=== PATIENT | female | born 1950 | race Caucasian/White ===

== ENCOUNTER 2016-08-15 05:16 | Inpatient (IN) | payer BC ==
[2016-08-13 13:32] LABS: HIV 1&2 ANTIBODY SCREEN Nonreactive (Nonreactive); HIV-1 p24 ANTIGEN Nonreactive (Nonreactive)
[~2016-08-15] VITALS: Ht 165.1 cm; Wt 146.7 kg
[~2016-08-15 05:16] MED LIST: ATEN50TA41 PO; CA C1TAB60 PO; CHOL400D3 PO; CITA40TA12 PO; IRON PO; MULT-516 PO; UBID200C8 PO
[2016-08-15] MEDS ORDERED: LACTATED RINGERS 1,000 ML IV SCH (05:42)
[2016-08-15 05:43] VITALS: BP 129/84
[2016-08-15] MEDS ORDERED: LIDOCAINE 1%, 2ML SQ PRN (06:00)
[2016-08-15] MEDS ORDERED: ACET-1600 PO (06:04)
[2016-08-15] MEDS ORDERED: GABA600T2 PO (06:04)
[2016-08-15] MEDS ORDERED: KETOROLAC 60 MG/2 ML ONE (06:12)
[2016-08-15] MEDS ORDERED: EPINEPHRINE 1 MG/ML, 1ML ONE (06:12)
[2016-08-15] MEDS ORDERED: ROPIvacaine/PF 0.2%, 20 ML ONE (06:12)
[2016-08-15] MEDS ORDERED: TRANEXAMIC ACID 100 MG/ML, 10ML ONE (06:13)
[2016-08-15] MEDS ORDERED: MIDAZOLAM 1 MG/ML, 2ML ONE (06:35)
[2016-08-15] MEDS ORDERED: FENTANYL PF 100 MCG/2ML ONE ×2 (06:36→09:08)
[2016-08-15] MEDS ORDERED: ROPIvacaine/PF 0.5%, 30 ML ONE (06:41)
[2016-08-15] MEDS ORDERED: ONDANSETRON 2MG/ML, 2ML ONE ×2 (07:12→09:03)
[2016-08-15] MEDS ORDERED: CEFAZOLIN 1,000 MG ONE (07:12)
[2016-08-15] MEDS ORDERED: DEXAMETHASONE 4 MG/ML, 5ML ONE (07:12)
[2016-08-15] MEDS ORDERED: PROPOFOL 10 MG/ML, 50ML ONE (07:12)
[2016-08-15] MEDS ORDERED: hydrALAzine 20 MG/ML, 1ML ONE ×2 (07:12→07:47)
[2016-08-15] MEDS ORDERED: GLYCOPYRROLATE 0.2MG/1ML ONE (07:12)
[2016-08-15] MEDS ORDERED: LABETALOL 5MG/ML, 20ML IV PRN (08:30)
[2016-08-15] MEDS ORDERED: HYDROmorphone 1 MG/ML, 1ML IV PRN (08:30)
[2016-08-15] MEDS ORDERED: ONDANSETRON 2MG/ML, 2ML IVPush PRN (08:30)
[2016-08-15] MEDS ORDERED: hydrALAzine 20 MG/ML, 1ML IV PRN (08:30)
[2016-08-15] MEDS ORDERED: OXYcodone 5 MG/5 ML ORAL.SOL UDC PO PRN (08:30)
[2016-08-15] MEDS ORDERED: DIPHENHYDRAMINE 50 MG CAPSULE PO PRN (09:00)
[2016-08-15] MEDS: DOCUSATE 100 MG CAPSULE PO SCH ×2 (09:00→21:37)
[2016-08-15] MEDS ORDERED: ALUMINUM/MAG/SIMETHICONE 30 ML UDC PO PRN (09:00)
[2016-08-15] MEDS ORDERED: MAGNESIUM HYDROXIDE 8%, 30ML UDC PO PRN (09:00)
[2016-08-15] MEDS ORDERED: ONDANSETRON 4 MG TABLET PO PRN (09:00)
[2016-08-15] MEDS ORDERED: SENNA/DOCUSATE TABLET PO PRN (09:00)
[2016-08-15] MEDS ORDERED: HYDROcodone/APAP 5/325 TABLET PO PRN (09:00)
[2016-08-15] MEDS ORDERED: ONDANSETRON 2MG/ML, 2ML IV PRN (09:00)
[2016-08-15] MEDS ORDERED: BISACODYL 10 MG SUPP PR PRN (09:00)
[2016-08-15] MEDS: FENTANYL PF 100 MCG/2ML IV PRN ×2 (09:10→09:40)
[2016-08-15 10:40] VITALS: BP 134/80
[2016-08-15] MEDS: D5%-0.45NACL+KCL 20MEQ 1,000 ML IV SCH ×2 (11:44→21:36)
[2016-08-15 14:12] VITALS: BP 120/78
[2016-08-15] MEDS: CEFAZOLIN PMX 2GM/50ML 50 ML IVPB SCH ×2 (14:51→23:34)
[2016-08-15] MEDS: ASPIRIN 81 MG TABLET EC PO SCH (17:14)
[2016-08-15 20:03] VITALS: BP 106/69
[2016-08-15] MEDS ORDERED: ATENOLOL 50 MG TABLET PO SCH (21:00)
[2016-08-15 23:49] VITALS: BP 102/62
[2016-08-16 03:11] VITALS: BP 97/53
[2016-08-16] MEDS: D5%-0.45NACL+KCL 20MEQ 1,000 ML IV SCH (03:30)
[2016-08-16] MEDS: ASPIRIN 81 MG TABLET EC PO SCH (05:57)
[2016-08-16 06:30] VITALS: BP 123/72
[2016-08-16] MEDS ORDERED: CITALOPRAM 20 MG TABLET PO SCH (09:00)
[2016-08-16] MEDS ORDERED: KETOROLAC 30 MG/1 ML IV SCH (09:00)
[2016-08-16] MEDS: DOCUSATE 100 MG CAPSULE PO SCH (09:19)
[2016-08-16] MEDS ORDERED: TRAM50TA2 PO (11:00)
[2016-08-16] MEDS ORDERED: ASPI81TA50 PO (11:01)
[2016-09-06] MEDS ORDERED: OMEP20TA62 PO (11:13)
== END 2016-08-16 11:20 | disposition home or self-care (01) | DRG 470 ==
LOC: ORIP 05:16 → 4NOR 10:42 → DCLOUNGE 08-16 11:00
PROVIDERS: ADMIT Orthopaedic Surgery Adult Reconstructive Orthopaedic Surgery; ATTEND Orthopaedic Surgery Adult Reconstructive Orthopaedic Surgery
PROC: 3E0T3CZ (ICD-10-PCS; 2016-08-15)
PROC: 0SRC0J9 Replacement of Right Knee Joint with Synthetic Substitute, Cemented, Open Approach (ICD-10-PCS; principal; 2016-08-15 07:00)
DX: M17.0 Bilateral primary osteoarthritis of knee (principal); Z68.43 Body mass index [BMI] 50.0-59.9, adult; G47.33 Obstructive sleep apnea (adult) (pediatric); E66.01 Morbid (severe) obesity due to excess calories; I48.91 Unspecified atrial fibrillation; I10 Essential (primary) hypertension; Z88.1 Allergy status to other antibiotic agents; Z88.0 Allergy status to penicillin; Z88.2 Allergy status to sulfonamides; Z88.8 Allergy status to other drugs, medicaments and biological substances; Z88.4 Allergy status to anesthetic agent; Z79.899 Other long term (current) drug therapy; Z72.89 Other problems related to lifestyle; Z95.810 Presence of automatic (implantable) cardiac defibrillator
CPT/HCPCS: 36415; 81003; 85014; 85018; 86703; 87081; 87899; C1713; J0171; J0690; J1100; J1885; J2250; J2405; J2704; J2795; J3010; J3490; C1776; G0435; J0360; J3480; J7120

== ENCOUNTER 2016-09-07 10:49 | Inpatient (IN) | payer BC ==
[2016-09-06 12:09] LABS: BLOOD UREA NITROGEN 13 mg/dL (7-18)
[2016-09-06 13:00] LABS: HIV 1&2 ANTIBODY SCREEN Nonreactive (Nonreactive); HIV-1 p24 ANTIGEN Nonreactive (Nonreactive)
[~2016-09-07] VITALS: Ht 165.1 cm; Wt 132.7 kg
[~2016-09-07 10:49] MED LIST changes: +ACET-1600 PO; +ASPI81TA50 PO; +GABA600T2 PO; +OMEP20TA62 PO; +TRAM50TA2 PO
[2016-09-07 11:32] VITALS: BP 142/79
[2016-09-07] MEDS ORDERED: LACTATED RINGERS 1,000 ML IV SCH (11:39)
[2016-09-07] MEDS ORDERED: FENTANYL PF 250 MCG/5ML ONE (11:56)
[2016-09-07] MEDS ORDERED: MIDAZOLAM 1 MG/ML, 2ML ONE (11:56)
[2016-09-07] MEDS ORDERED: BUPIVACAINE LIPOSOME/PF INFIL ONE (11:59)
[2016-09-07] MEDS ORDERED: KETOROLAC 60 MG/2 ML ONE (12:36)
[2016-09-07] MEDS ORDERED: EPINEPHRINE 1 MG/ML, 1ML ONE (12:37)
[2016-09-07] MEDS ORDERED: TRANEXAMIC ACID 100 MG/ML, 10ML ONE ×2 (12:37)
[2016-09-07] MEDS ORDERED: SODIUM CHLORIDE 0.9% 50 ML ONE (12:37)
[2016-09-07] MEDS ORDERED: ROPIvacaine/PF 0.2%, 20 ML ONE (12:37)
[2016-09-07] MEDS ORDERED: ROCURONIUM 10 MG/ML ONE (12:56)
[2016-09-07] MEDS ORDERED: CEFAZOLIN 1,000 MG ONE (12:56)
[2016-09-07] MEDS ORDERED: ONDANSETRON 2MG/ML, 2ML ONE ×2 (12:56→15:08)
[2016-09-07] MEDS ORDERED: DEXAMETHASONE 4 MG/ML, 1ML ONE (12:56)
[2016-09-07] MEDS ORDERED: PROPOFOL 10 MG/ML, 20ML ONE (12:56)
[2016-09-07] MEDS ORDERED: SUCCINYLCHOLINE 20 MG/ML, 10ML ONE (12:56)
[2016-09-07] MEDS ORDERED: LABETALOL 5MG/ML, 20ML IV PRN (13:30)
[2016-09-07] MEDS ORDERED: FENTANYL PF 100 MCG/2ML IV PRN (13:30)
[2016-09-07] MEDS ORDERED: OXYcodone 5 MG/5 ML ORAL.SOL UDC PO PRN (13:30)
[2016-09-07] MEDS ORDERED: HYDROmorphone 1 MG/ML, 1ML IV PRN ×2 (13:30→15:00)
[2016-09-07] MEDS ORDERED: ONDANSETRON 2MG/ML, 2ML IVPush PRN (13:30)
[2016-09-07] MEDS ORDERED: MEPERIDINE/PF 25MG/0.5ML IVPush PRN (13:30)
[2016-09-07] MEDS ORDERED: ACETAMINOPHEN 325 MG TABLET PO PRN (13:30)
[2016-09-07] MEDS ORDERED: hydrALAzine 20 MG/ML, 1ML IV PRN (13:30)
[2016-09-07] MEDS ORDERED: PROMETHAZINE 25 MG/ML, 1ML IV PRN (13:30)
[2016-09-07] MEDS ORDERED: ACETAMINOPHEN 650 MG/20.3 ML UDC ONE (14:54)
[2016-09-07] MEDS: D5%-0.45NACL+KCL 20MEQ 1,000 ML IV SCH ×2 (14:54→22:54)
[2016-09-07] MEDS ORDERED: FENTANYL PF 100 MCG/2ML ONE (14:55)
[2016-09-07] MEDS ORDERED: OXYcodone 5 MG/5 ML ORAL.SOL UDC ONE (14:55)
[2016-09-07] MEDS ORDERED: TRANEXAMIC ACID 1,500 MG in SODIUM CHLORIDE 0.9% 100 ML IVPB ONE (14:55)
[2016-09-07] MEDS ORDERED: SCOPOLAMINE PATCH, 1.5MG PATCH.TD72 TD SCH (15:00)
[2016-09-07] MEDS ORDERED: DIPHENHYDRAMINE 25 MG CAPSULE PO PRN (15:00)
[2016-09-07] MEDS ORDERED: PROMETHAZINE 12.5 MG SUPP PR PRN (15:00)
[2016-09-07] MEDS ORDERED: ALUMINUM/MAG/SIMETHICONE 30 ML UDC PO PRN (15:00)
[2016-09-07] MEDS ORDERED: ZOLPIDEM 5MG TABLET PO PRN (15:00)
[2016-09-07] MEDS ORDERED: BISACODYL 10 MG SUPP PR PRN (15:00)
[2016-09-07] MEDS ORDERED: ONDANSETRON 2MG/ML, 2ML IV PRN (15:00)
[2016-09-07] MEDS ORDERED: PROMETHAZINE 25 MG/ML, 1ML IM PRN (15:00)
[2016-09-07] MEDS ORDERED: SENNA/DOCUSATE TABLET PO PRN (15:00)
[2016-09-07] MEDS ORDERED: OXYcodone IR 5MG TABLET PO PRN (15:00)
[2016-09-07] MEDS ORDERED: MAGNESIUM HYDROXIDE 8%, 30ML UDC PO PRN (15:00)
[2016-09-07] MEDS ORDERED: ONDANSETRON 4 MG TABLET PO PRN (15:00)
[2016-09-07] MEDS: ACETAMINOPHEN 650 MG/20.3 ML UDC PO SCH ×2 (17:26→21:56)
[2016-09-07] MEDS: OMEPRAZOLE 20 MG CAPSULE.DR PO SCH (18:48)
[2016-09-07 19:56] VITALS: BP 168/76
[2016-09-07] MEDS ORDERED: ATENOLOL 50 MG TABLET PO SCH (21:00)
[2016-09-07] MEDS: CEFAZOLIN PMX 2GM/50ML 50 ML IVPB SCH (21:55)
[2016-09-07] MEDS: DOCUSATE 100 MG CAPSULE PO SCH (21:56)
[2016-09-08 00:25] VITALS: BP 113/52
[2016-09-08] MEDS: ACETAMINOPHEN 650 MG/20.3 ML UDC PO SCH ×2 (03:00→09:37)
[2016-09-08 03:33] VITALS: BP 124/49
[2016-09-08] MEDS: CEFAZOLIN PMX 2GM/50ML 50 ML IVPB SCH (05:32)
[2016-09-08] MEDS ORDERED: ASPIRIN 81 MG TABLET EC PO SCH (06:00)
[2016-09-08] MEDS ORDERED: DEXAMETHASONE 4 MG/ML, 1ML IVPush SCH (06:00)
[2016-09-08 06:38] VITALS: BP 146/74
[2016-09-08] MEDS ORDERED: MULTIVITAMINS/MINERALS TABLET PO SCH (09:00)
[2016-09-08] MEDS ORDERED: MULTIVITAMIN 1 TABLET PO SCH (09:00)
[2016-09-08] MEDS ORDERED: CITALOPRAM 20 MG TABLET PO SCH (09:00)
[2016-09-08] MEDS ORDERED: FERROUS SULFATE 325 MG TABLET PO SCH (09:00)
[2016-09-08] MEDS ORDERED: CHOLECALCIFEROL 1,000 UNIT TABLET PO SCH (09:00)
[2016-09-08] MEDS ORDERED: CALCIUM/VITAMIN D3 250-125 TABLET PO SCH (09:00)
[2016-09-08] MEDS: DOCUSATE 100 MG CAPSULE PO SCH (09:37)
[2016-09-08] MEDS: OMEPRAZOLE 20 MG CAPSULE.DR PO SCH (09:37)
[2016-09-08] MEDS ORDERED: TRAM50TA2 PO (10:07)
[2016-09-08] MEDS ORDERED: KETOROLAC 30 MG/1 ML IV SCH (15:00)
== END 2016-09-08 11:10 | disposition home or self-care (01) | DRG 470 ==
LOC: ORIP 10:49 → EDSTATUS 13:00 → 4NOR 17:06
PROVIDERS: ADMIT Orthopaedic Surgery Adult Reconstructive Orthopaedic Surgery; ATTEND Orthopaedic Surgery Adult Reconstructive Orthopaedic Surgery
PROC: 0SRD0J9 Replacement of Left Knee Joint with Synthetic Substitute, Cemented, Open Approach (ICD-10-PCS; principal; 2016-09-07 13:00)
DX: M17.0 Bilateral primary osteoarthritis of knee (principal); I10 Essential (primary) hypertension; G47.30 Sleep apnea, unspecified; Z88.4 Allergy status to anesthetic agent; Z88.0 Allergy status to penicillin; Z88.2 Allergy status to sulfonamides; Z79.899 Other long term (current) drug therapy; Z82.61 Family history of arthritis; Z82.3 Family history of stroke; Z84.89 Family history of other specified conditions
CPT/HCPCS: 36415; 80048; 81003; 85014; 85018; 85025; 86703; 87081; 87899; 93005; C9290; J0171; J0690; J1100; J1885; J2250; J2405; J2704; J2795; J3010; G0435; J0330; J7120